=== PATIENT | female | born 1980 | race Caucasian/White ===

== ENCOUNTER → 2022-05-06 | Outpatient (CLI) | payer OTHER, SELFPAY ==
--- NOTE | 2022-05-06 15:41 | US_ITS ---
INDICATION: NECK SWELLING EXAMINATION: US Thyroid (eg thyroid, parathyroid, parotid) TECHNIQUE: Martinez scale and color doppler imaging was performed of the thyroid gland. COMPARISON: None. FINDINGS: RIGHT THYROID LOBE: Measures 5.7 x 1.6 x 2.2 cm. Homogeneous echotexture with normal to decreased vascularity. [No thyroid nodules are present. LEFT THYROID LOBE: Measures 5.3 x 1.5 x 2.1 cm. Homogeneous echotexture with normal to decreased vascularity. [No thyroid nodules are present. ISTHMUS: Measures 0.3 cm. No thyroid nodules are present. US/Thyroid IMPRESSION: Diffusely enlarged and homogeneous thyroid gland with no discrete nodules and normal to decreased vascularity. Differential includes but is not limited to nontoxic goiter (e.g. iodine deficiency), subacute granulomatous thyroiditis (De Quervain''s thyroiditis), and various drugs. Electronically Signed: Miguel Ángel Means MD at 1:08 EST ,
== END | disposition home or self-care (01) ==
LOC: US 15:39
DX: R22.1 Localized swelling, mass and lump, neck (principal)
CPT/HCPCS: 76536

== ENCOUNTER → 2022-05-19 | Outpatient (CLI) | payer OTHER, SELFPAY ==
--- NOTE | 2022-05-19 14:35 | RAD_ITS ---
INDICATION: PAIN EXAMINATION/TECHNIQUE: X-RAY - XR Pelvis 1 or 2 Views COMPARISON: None. FINDINGS: PELVIC BONES: Osteitis symphysis. No displaced fracture, destructive or sclerotic lesions. Note that overlapping bowel shadows may however obscure fine detail. Sacroiliac joints are unremarkable. No widening of the pubic symphysis. HIPS: The articular structures are unremarkable. No displaced fracture seen in this frontal view. SOFT TISSUES: No soft tissue swelling or gas. Bilateral pelvic calcifications likely phleboliths. RAD/Pelvis 1 or 2 Views IMPRESSION: Osteitis symphysis. Electronically Signed: Kevin Feliz MD, SPE[facility] at 16:58 EDT ,
[2022-05-19 18:07] LABS: Absolute Lymphocyte Count 1.72 X10^3/uL (0.83-4.51); Absolute Neutrophil Count 6.9 X10^3/uL (2.0-7.7); Basophil# 0.03 X10^3/uL; Basophil% 0.3 % (0-1); Eosinophil# 0.23 X10^3/uL; Eosinophils% 2.4 % (0-5); Hematocrit 41.4 % (37-47); Hemoglobin 12.9 g/dL (12.0-15.0); Lymphocyte # 1.72 X10^3/ul (0.83-4.51); Lymphocyte % 18.1 % (19-41); Mean Corp Hgb Conc 31.2 g/dL (32-36); Mean Corpuscular Hgb 28.6 pg (27.0-32.0); Mean Corpuscular Volume 91.8 fL (81-99); Monocyte# 0.62 X10^3/uL; Monocyte% 6.5 % (0-10); NRBC Flagged by Analyzer 0 % (0-5); Neutrophil # 6.85 X10^3/uL (2.7-7.7); Neutrophil % 72.4 % (47-70); Platelet Count 296 K/mm3 (150-450); RBC Distribution Width CV 13.2 % (11.6-14.6); RBC Distribution Width SD 45.1 fl (35.1-43.9); Red Blood Count 4.51 M/mm3 (4.2-5.4); White Blood Count 9.5 K/mm3 (4.4-11.0)
[2022-05-19 18:11] LABS: Erythrocyte Sedimentation Rate 11 mm/hr (0-30)
[2022-05-19 20:41] LABS: ALB/GLOB Ratio 1.1 RATIO (0.9-2.4); AST(SGOT) 32 U/L (15-37); Alanine Aminotransfer ALT/SGPT 43 U/L (13-56); Albumin, Serum 3.8 g/dL (3.2-5.0); Alkaline Phosphatase 80 U/L (45-117); Anion Gap 9 (5-15); BUN 15 mg/dL (7-18); BUN/Creat Ratio 17.1 RATIO (10-20); CRP 5.95 mg/L (0.0-3.0); Chloride 105 mmol/L (98-107); Creatinine, Serum 0.88 mg/dL (0.55-1.02); EST Glomerular Filtration Rate 76 mL/min (>60); Est Glom Filt Rate - Afr Amer 92 mL/min (>60); Globulin 3.4 g/dL (2.2-4.2); Glucose 84 mg/dL (74-106); Potassium 4.1 mmol/L (3.5-5.1); Protein, Total 7.2 g/dL (6.4-8.2); Rheumatoid Factor < 10.0 IU/mL (<15); Sodium Level 138 mmol/L (136-145)
[2022-05-19 20:53] LABS: Hepatitis B Surface Antibody Reactive; Hepatitis B Surface Antigen Non-Reactive (Nonreactive); Hepatitis C Antibody Non-Reactive (Nonreactive)
[2022-05-21 15:15] LABS: ANTINUCLEAR ANTIBODIES DIRECT Positive (Negative)
[2022-05-25 19:33] LABS: CCP IgG Antibodies 12 units (0-19); HLA B27 Negative (.)
== END | disposition home or self-care (01) ==
PROVIDERS: Referring Provider Internal Medicine Rheumatology; Visit Provider Internal Medicine Rheumatology
DX: M06.4 Inflammatory polyarthropathy (principal); M79.7 Fibromyalgia; M24.9 Joint derangement, unspecified
CPT/HCPCS: 36415; 72170; 80053; 81374; 85025; 85652; 86038; 86140; 86200; 86431; 86706; 86803; 87340

== ENCOUNTER → 2022-05-25 | Outpatient (CLI) | payer OTHER, SELFPAY ==
[2022-05-29 14:49] LABS: HPV APTIMA, High Risk Negative (Negative)
== END | disposition home or self-care (01) ==
PROVIDERS: Referring Provider Registered Nurse; Visit Provider Registered Nurse
DX: Z12.4 Encounter for screening for malignant neoplasm of cervix (principal)
CPT/HCPCS: 87624; 88175; G0145

== ENCOUNTER → 2022-06-09 | Outpatient (CLI) | payer OTHER, SELFPAY ==
[2022-06-09 16:56] LABS: EXAGEN MAILED SPECIMEN
[2022-06-09 17:49] LABS: Color, Urine Yellow (Yellow); Glucose, Dipstick Normal (Normal); Ketone-Dipstick Negative (Negative); Leukocyte Esterase-Dipstick 100 /ul (Negative); Nitrite-Dipstick Negative (Negative); Occult Blood-Urine Negative /ul (Negative); Protein-Dipstick Negative (Negative); Urine Bilirubin Dipstick Negative (Negative); Urine Clarity Sl. Cloudy (Clear); Urine Urobilinogen Normal (Normal)
[2022-06-09 17:52] LABS: Prothrombin Time (Protime)PT. 12.9 SECONDS (11.7-14.9)
[2022-06-09 17:53] LABS: Partial Thromboplast Time 28.6 Seconds (24.1-36.2)
[2022-06-09 18:08] LABS: Protein, Urine (Random) 7.6 mg/dL (<11.9); Protein:Creat Ratio 211 mg/g CRE (0-200)
[2022-06-11 18:54] LABS: Thrombin Time 16.8 sec (0.0-23.0)
[2022-06-13 02:07] LABS: Dilute Prothrombin Time (dPT) 45.4 sec (0.0-47.6); Dilute Russell Viper Venom 41.8 sec (0.0-47.0); Hexagonal Phase Phospholipid 7 sec (0-11); Hexagonal Phase Phospholipid 2 7 sec (0-11); PTT-LA 43.9 sec (0.0-43.5); PTT-LA Incub Mix 45.4 sec (0.0-40.5); Thrombin Time 16.5 sec (0.0-23.0); dPT Confirm Ratio 1.28 Ratio (0.00-1.34)
[2022-06-13 08:31] LABS: Interpretation Comment: (.)
== END | disposition home or self-care (01) ==
LOC: MTLAB 15:53
PROVIDERS: Referring Provider Internal Medicine Rheumatology; Visit Provider Internal Medicine Rheumatology
DX: M06.4 Inflammatory polyarthropathy (principal); M79.7 Fibromyalgia; R76.8 Other specified abnormal immunological findings in serum
CPT/HCPCS: 81002; 82570; 84156; 85598; 85610; 85670; 85730

== ENCOUNTER → 2022-08-20 | Outpatient (CLI) | payer OTHER, SELFPAY | END | disposition home or self-care (01) | LOC: LABSPEC 14:51 | PROVIDERS: Visit Provider Advanced Practice Midwife | DX: B37.2 Candidiasis of skin and nail (principal) | CPT/HCPCS: 87070; 87205 ==

== ENCOUNTER → 2023-06-07 | Outpatient (CLI) | payer OTHER, SELFPAY ==
[2023-06-07 14:10] LABS: Vitamin D,25 Hydroxy 36.5 ng/mL
== END | disposition home or self-care (01) ==
PROVIDERS: Visit Provider Nurse Practitioner Women's Health
DX: Z13.21 Encounter for screening for nutritional disorder (principal); Z80.3 Family history of malignant neoplasm of breast
CPT/HCPCS: 36415; 82306

== ENCOUNTER → 2023-06-14 | Outpatient (CLI) | payer OTHER, SELFPAY ==
--- NOTE | 2023-06-14 16:28 | BI_ITS ---
MAMMOGRAPHY - BILATERAL SCREENING REASON FOR EXAM: Female, 42 years old. Routine annual screening examination. PERTINENT HISTORY: Grandmother with breast cancer. TECHNIQUE: Digital bilateral breast shaggy (3D mammographic acquisition) in the CC and MLO projections. 2-D mediolateral oblique (MLO) and craniocaudad (CC) views of both breasts were obtained. CAD: Full Field Digital Mammography with Computer Added Detection was performed. COMPARISON: Comparison is made with prior outside examination dated July 18, 2020. FINDINGS: Breast Composition: The breasts are heterogeneously dense, which may obscure small masses. There are no dominant masses or suspicious calcifications. Stable asymmetric breast tissue but more breast tissue is seen in the right breast as compared to the left side. No other significant abnormalities are identified. There has been no significant change since the prior study. BI/SCRN MAMM (CAD)W/SHAGGY BILAT IMPRESSION: Stable bilateral screening mammogram. Yearly follow-up mammogram recommended. (A) ASSESSMENT CATEGORY: BIRADS Category 2: Benign. A letter regarding these results will be sent to the patient by the facility within 30 days. Approximately 10% of breast cancers are not detected by mammography. A normal mammogram should not delay biopsy of a clinically suspicious abnormality. [id number] Electronically Signed: Brooks Ewing MD at 9:49 EDT ,
== END | disposition home or self-care (01) ==
LOC: OPBI 16:28
PROVIDERS: Referring Provider Nurse Practitioner Women's Health; Visit Provider Nurse Practitioner Women's Health
DX: Z12.31 Encounter for screening mammogram for malignant neoplasm of breast (principal)
CPT/HCPCS: 77063; 77067

== ENCOUNTER → 2024-03-06 | Outpatient (CLI) | payer OTHER, SELFPAY ==
--- NOTE | 2024-03-06 15:28 | US_ITS ---
HISTORY: pelvic pain. TECHNIQUE: Transabdominal and transvaginal pelvic ultrasound was performed with bermeo scale and color Doppler evaluation. 79 images. COMPARISON: None. FINDINGS: UTERUS: 8.5 x 3.9 x 4.3 cm. Anteverted. ENDOMETRIAL THICKNESS: 6 mm. RIGHT OVARY: 1.9 x 2.1 x 2.9 cm. No adnexal masses. LEFT OVARY: 1.4 x 1.8 x 2 cm. No adnexal masses. FREE FLUID: None. URINARY BLADDER: Partially distended at 30 cc. US/Pelvic w/ Transvaginal IMPRESSION: Unremarkable pelvic ultrasound. Electronically Signed: Blanche Lim MD at 9:20 EST ,
== END | disposition home or self-care (01) ==
LOC: US 15:27
PROVIDERS: Referring Provider Nurse Practitioner Women's Health; Visit Provider Nurse Practitioner Women's Health
DX: R10.2 Pelvic and perineal pain (principal)
CPT/HCPCS: 76830; 76856